=== PATIENT | male | born 1975 | race Asian ===

== ENCOUNTER 2016-10-19 15:31 | Emergency (ER) | payer BC ==
[~2016-10-19] VITALS: Ht 172.7 cm; Wt 77.1 kg
[2016-10-19 15:42] VITALS: BP_SYST 134
[2016-10-19 19:12] VITALS: BP_SYST 120
== END 2016-10-19 19:12 | disposition home or self-care (01) ==
LOC: SED 15:31
DX: T65.91XA Toxic effect of unspecified substance, accidental (unintentional), initial encounter (principal); Y92.89 Other specified places as the place of occurrence of the external cause
CPT/HCPCS: 74020-TC; 99284